=== PATIENT | female | born 1965 | race African-American/Black ===

== ENCOUNTER 2021-06-08 15:21 | Inpatient (IN) | payer MEDICAID ==
[~2021-06-08] VITALS: Ht 175.3 cm; Wt 60.9 kg
[2021-06-08] MEDS ORDERED: ACETAMINOPHEN 500 MG TABLET PO ONE (16:15)
[2021-06-08 16:33] LABS: COVID AG,FIA SOURCE NASOPHARYNGEAL
[2021-06-08 17:52] LABS: BASOPHILS % (AUTO) 0.1 % (0.0-2.0); EOSINOPHILS % (AUTO) 0.1 % (1.0-6.0); HEMATOCRIT 34.6 % (36-46); HEMOGLOBIN 11.1 g/dL (12.0-16.0); LYMPHOCYTES # (AUTO) 0.5 K/uL (1.0-4.8); LYMPHOCYTES % (AUTO) 2.7 % (22.0-44.0); MEAN CORPUSCULAR HEMOGLOBIN 27.7 pg (26.0-34.0); MEAN CORPUSCULAR HGB CONC 32.2 G/dL (31.0-37.0); MEAN CORPUSCULAR VOLUME 86 fL (80-100); MONOCYTES # (AUTO) 0.8 K/uL (0.1-1.0); MONOCYTES % (AUTO) 4.6 % (2.0-9.0); NEUTROPHILS # (AUTO) 15.9 K/uL (1.8-7.7); PLATELET COUNT (AUTO) 290 K/uL (150-450); RED BLOOD CELL COUNT(AUTO) 4.02 MIL/uL (4.00-5.20); RED CELL DISTRIBUTION WIDTH 14.8 % (11.5-14.5)
[2021-06-08 17:54] LABS: NEUTROPHILS % (AUTO) 92.5 % (40.0-70.0)
[2021-06-08 18:01] LABS: CALCIUM, TOTAL 8.8 mg/dL (8.8-10.5); CREATININE 1.86 mg/dL (0.60-1.30); POTASSIUM 3.3 mmol/L (3.5-5.1)
[2021-06-08 18:06] LABS: ALBUMIN 2.4 g/dL (3.4-5.0); BILIRUBIN,TOTAL 0.6 mg/dL (0.1-1.0); TOTAL PROTEIN, SERUM 6.8 g/dL (6.4-8.2)
[2021-06-08] MEDS ORDERED: AZITHROMYCIN 500 MG/NS 250 ML IV ONE (18:15)
[2021-06-08] MEDS ORDERED: HydrALAZINE HCL 20 MG/ML VIAL IVP ONE (18:15)
[2021-06-08] MEDS ORDERED: FUROSEMIDE 40 MG/4 ML VIAL IVP ONE (18:15)
[2021-06-08] MEDS ORDERED: CefTRIAXone 1 GM/DEXTROSE 50 ML IV ONE (18:15)
[2021-06-08] MEDS ORDERED: ONDANSETRON HCL 4 MG/2 ML VIAL IVP PRN ×2 (18:30→22:45)
[2021-06-08] MEDS ORDERED: ACETAMINOPHEN 325 MG TABLET PO PRN (18:30)
[2021-06-08 18:47] LABS: D-DIMER 3.3 mg/L FEU (0.00-0.50); PROTHROMBIN TIME 10.9 SEC (9.4-11.6)
[2021-06-08 19:00] LABS: PHOSPHORUS 2.7 mg/dL (2.5-4.9)
[2021-06-08 19:32] LABS: ERYTHROCYTE SEDIMENTATION RATE 78 MM/HR (0-20)
[2021-06-08 20:41] VITALS: BP 186/106
[2021-06-08] MEDS: CARVEDILOL 3.125 MG TABLET PO SCH (21:43)
[2021-06-08] MEDS ORDERED: IPRATROPIUM BROMIDE 0.5 MG/2.5 ML NEB SOLUTION NEB PRN (22:45)
[2021-06-08] MEDS ORDERED: MORPHINE SULFATE 2 MG/ML SYRINGE IVP PRN (22:45)
[2021-06-08] MEDS ORDERED: BISACODYL 10 MG RECTAL RECTAL SUPPOSITORY PR PRN (22:45)
[2021-06-08] MEDS ORDERED: ALBUTEROL SULFATE 2.5 MG/0.5 ML NEB SOLUTION NEB PRN (22:45)
[2021-06-08] MEDS ORDERED: MAGNESIUM HYDROXIDE SUSPENSION 30 ML UDCUP PO PRN (22:45)
[2021-06-08] MEDS ORDERED: POTASSIUM CHLORIDE 20 MEQ ER TABLET PO ONE (22:45)
[2021-06-08] MEDS: HEPARIN SODIUM,PORCINE 5,000 UNITS/ML VIAL SQ SCH (23:17)
[2021-06-08 23:28] VITALS: BP 169/90
[2021-06-08] MEDS: ACETAMINOPHEN 325 MG TABLET PO PRN (23:31)
[2021-06-09] MEDS: HYDROCODONE/ACETAMINOPHEN 5-325 MG TABLET PO PRN ×4 (03:34→22:14)
[2021-06-09 04:30] VITALS: BP 144/74
[2021-06-09 07:02] LABS: BASOPHILS % (AUTO) 0.2 % (0.0-2.0); CALCIUM, TOTAL 8.4 mg/dL (8.8-10.5); CREATININE 1.92 mg/dL (0.60-1.30); EOSINOPHILS % (AUTO) 0 % (1.0-6.0); HEMATOCRIT 34.8 % (36-46); HEMOGLOBIN 11.2 g/dL (12.0-16.0); LYMPHOCYTES # (AUTO) 0.7 K/uL (1.0-4.8); LYMPHOCYTES % (AUTO) 3.9 % (22.0-44.0); MEAN CORPUSCULAR HEMOGLOBIN 27.9 pg (26.0-34.0); MEAN CORPUSCULAR HGB CONC 32.1 G/dL (31.0-37.0); MEAN CORPUSCULAR VOLUME 87 fL (80-100); MONOCYTES # (AUTO) 0.9 K/uL (0.1-1.0); MONOCYTES % (AUTO) 5.1 % (2.0-9.0); NEUTROPHILS # (AUTO) 15.4 K/uL (1.8-7.7); PLATELET COUNT (AUTO) 308 K/uL (150-450); POTASSIUM 3.3 mmol/L (3.5-5.1); RED BLOOD CELL COUNT(AUTO) 4.02 MIL/uL (4.00-5.20); RED CELL DISTRIBUTION WIDTH 14.7 % (11.5-14.5)
[2021-06-09 07:04] LABS: NEUTROPHILS % (AUTO) 90.8 % (40.0-70.0)
[2021-06-09 07:51] VITALS: BP 156/98
[2021-06-09] MEDS: HEPARIN SODIUM,PORCINE 5,000 UNITS/ML VIAL SQ SCH ×3 (08:26→23:11)
[2021-06-09] MEDS: PANTOPRAZOLE SODIUM 40 MG DR TABLET PO SCH (08:26)
[2021-06-09] MEDS: FUROSEMIDE 20 MG/2 ML VIAL IVP SCH ×2 (08:26→20:48)
[2021-06-09] MEDS: CARVEDILOL 3.125 MG TABLET PO SCH ×2 (08:27→20:48)
[2021-06-09] MEDS: DOCUSATE SODIUM 100 MG CAPSULE PO SCH ×2 (08:28→20:48)
[2021-06-09] MEDS: ACETAMINOPHEN 325 MG TABLET PO PRN (08:42)
[2021-06-09] MEDS ORDERED: ALBUTEROL SULFATE HFA 90 MCG/PUFF 8 GM INHALER IH PRN (11:00)
[2021-06-09] MEDS ORDERED: IPRATROPIUM BROMIDE HFA 17 MCG/PUFF 12.9 GM INHALER IH PRN (11:00)
[2021-06-09] MEDS ORDERED: POTASSIUM CHLORIDE 20 MEQ ER TABLET PO ONE (11:00)
[2021-06-09 11:57] VITALS: BP 156/90
[2021-06-09] MEDS: THIAMINE 100 MG TABLET PO SCH (12:16)
[2021-06-09] MEDS: MULTIVITAMINS WITH MINERALS, THERAPEUTIC TABLET PO SCH (12:17)
[2021-06-09 15:56] VITALS: BP 161/96
[2021-06-09] MEDS: MethylPREDNISolone SOD SUCC 40 MG/ML VIAL IVP SCH ×2 (16:00→23:11)
[2021-06-09] MEDS: HydrALAZINE HCL 20 MG/ML VIAL IVP PRN (16:54)
[2021-06-09 19:52] VITALS: BP 134/93
[2021-06-09] MEDS ORDERED: SODIUM CHLORIDE 0.9% 500 ML IV ONE (20:44)
[2021-06-09] MEDS: AZITHROMYCIN 500 MG/NS 250 ML IV SCH (20:47)
[2021-06-09] MEDS: CefTRIAXone 1 GM/DEXTROSE 50 ML IV SCH (22:14)
[2021-06-10] VITALS (7 sets, daily range): BP systolic 143–197; BP diastolic 83–120
[2021-06-10] MEDS: HydrALAZINE HCL 20 MG/ML VIAL IVP PRN ×2 (04:05→13:23)
[2021-06-10 06:02] LABS: BASOPHILS % (AUTO) 0.2 % (0.0-2.0); EOSINOPHILS % (AUTO) 0 % (1.0-6.0); HEMATOCRIT 36.1 % (36-46); LYMPHOCYTES # (AUTO) 0.4 K/uL (1.0-4.8); LYMPHOCYTES % (AUTO) 3.7 % (22.0-44.0); MEAN CORPUSCULAR HEMOGLOBIN 28.1 pg (26.0-34.0); MEAN CORPUSCULAR HGB CONC 33.3 G/dL (31.0-37.0); MEAN CORPUSCULAR VOLUME 85 fL (80-100); MONOCYTES # (AUTO) 0.2 K/uL (0.1-1.0); MONOCYTES % (AUTO) 2.1 % (2.0-9.0); NEUTROPHILS # (AUTO) 8.9 K/uL (1.8-7.7); PLATELET COUNT (AUTO) 400 K/uL (150-450); RED BLOOD CELL COUNT(AUTO) 4.27 MIL/uL (4.00-5.20); RED CELL DISTRIBUTION WIDTH 14.8 % (11.5-14.5)
[2021-06-10 06:51] LABS: CALCIUM, TOTAL 9.3 mg/dL (8.8-10.5); CREATININE 1.56 mg/dL (0.60-1.30); MAGNESIUM 2.3 mg/dL (1.80-2.40); PHOSPHORUS 3.5 mg/dL (2.5-4.9); POTASSIUM 3.6 mmol/L (3.5-5.1)
[2021-06-10] MEDS: PANTOPRAZOLE SODIUM 40 MG DR TABLET PO SCH (07:48)
[2021-06-10] MEDS: DOCUSATE SODIUM 100 MG CAPSULE PO SCH ×2 (07:48→20:21)
[2021-06-10] MEDS: CARVEDILOL 3.125 MG TABLET PO SCH (07:49)
[2021-06-10] MEDS: THIAMINE 100 MG TABLET PO SCH (07:49)
[2021-06-10] MEDS: MULTIVITAMINS WITH MINERALS, THERAPEUTIC TABLET PO SCH (07:49)
[2021-06-10] MEDS: HYDROCODONE/ACETAMINOPHEN 5-325 MG TABLET PO PRN ×2 (07:50→13:33)
[2021-06-10] MEDS: HEPARIN SODIUM,PORCINE 5,000 UNITS/ML VIAL SQ SCH ×3 (07:50→23:42)
[2021-06-10] MEDS: FUROSEMIDE 20 MG/2 ML VIAL IVP SCH ×2 (07:51→20:21)
[2021-06-10] MEDS: MethylPREDNISolone SOD SUCC 40 MG/ML VIAL IVP SCH ×3 (07:53→23:42)
[2021-06-10] MEDS ORDERED: LISINOPRIL 5 MG TABLET PO SCH (12:00)
[2021-06-10] MEDS: CARVEDILOL 6.25 MG TABLET PO SCH (20:22)
[2021-06-10] MEDS: HYDROCODONE/CHLORPHEN POLIS 10-8 MG/5 ML ORAL.SYG PO PRN (20:22)
[2021-06-10] MEDS: ZOLPIDEM TARTRATE 5 MG TABLET PO PRN (20:22)
[2021-06-10] MEDS: AZITHROMYCIN 500 MG/NS 250 ML IV SCH (20:23)
[2021-06-10] MEDS: CefTRIAXone 1 GM/DEXTROSE 50 ML IV SCH (22:16)
[2021-06-11] VITALS (7 sets, daily range): BP systolic 162–189; BP diastolic 76–112
[2021-06-11] MEDS: HydrALAZINE HCL 20 MG/ML VIAL IVP PRN ×2 (04:50→14:34)
[2021-06-11 06:51] LABS: BASOPHILS % (AUTO) 0.3 % (0.0-2.0); EOSINOPHILS % (AUTO) 0 % (1.0-6.0); HEMATOCRIT 36.5 % (36-46); HEMOGLOBIN 11.6 g/dL (12.0-16.0); LYMPHOCYTES # (AUTO) 0.5 K/uL (1.0-4.8); LYMPHOCYTES % (AUTO) 4.4 % (22.0-44.0); MEAN CORPUSCULAR HEMOGLOBIN 27.5 pg (26.0-34.0); MEAN CORPUSCULAR HGB CONC 31.7 G/dL (31.0-37.0); MEAN CORPUSCULAR VOLUME 87 fL (80-100); MONOCYTES # (AUTO) 0.5 K/uL (0.1-1.0); MONOCYTES % (AUTO) 3.8 % (2.0-9.0); PLATELET COUNT (AUTO) 475 K/uL (150-450); RED BLOOD CELL COUNT(AUTO) 4.22 MIL/uL (4.00-5.20); RED CELL DISTRIBUTION WIDTH 15.1 % (11.5-14.5)
[2021-06-11 07:08] LABS: NEUTROPHILS % (AUTO) 91.5 % (40.0-70.0)
[2021-06-11 07:10] LABS: CREATININE 1.56 mg/dL (0.60-1.30); POTASSIUM 3.9 mmol/L (3.5-5.1)
[2021-06-11 07:11] LABS: CALCIUM, TOTAL 9.1 mg/dL (8.8-10.5)
[2021-06-11] MEDS: FUROSEMIDE 20 MG/2 ML VIAL IVP SCH ×2 (07:15→20:30)
[2021-06-11] MEDS: CARVEDILOL 6.25 MG TABLET PO SCH (07:16)
[2021-06-11] MEDS: LISINOPRIL 5 MG TABLET PO SCH ×2 (07:30→07:31)
[2021-06-11] MEDS: HYDROCODONE/ACETAMINOPHEN 5-325 MG TABLET PO PRN ×3 (08:26→20:30)
[2021-06-11] MEDS: MULTIVITAMINS WITH MINERALS, THERAPEUTIC TABLET PO SCH (08:26)
[2021-06-11] MEDS: PANTOPRAZOLE SODIUM 40 MG DR TABLET PO SCH (08:27)
[2021-06-11] MEDS: DOCUSATE SODIUM 100 MG CAPSULE PO SCH ×2 (08:27→20:30)
[2021-06-11] MEDS: THIAMINE 100 MG TABLET PO SCH (08:27)
[2021-06-11] MEDS: MethylPREDNISolone SOD SUCC 40 MG/ML VIAL IVP SCH ×3 (08:30→23:40)
[2021-06-11] MEDS: HEPARIN SODIUM,PORCINE 5,000 UNITS/ML VIAL SQ SCH ×3 (08:30→23:40)
[2021-06-11] MEDS ORDERED: CARVEDILOL 6.25 MG TABLET PO STA (11:26)
[2021-06-11] MEDS ORDERED: VANCOMYCIN HCL 1.25 GM in DEXTROSE 5%-WATER 250 ML IV ONE (14:00)
[2021-06-11] MEDS: CefTRIAXone SODIUM 2 GM in DEXTROSE 5%-WATER 50 ML IV SCH (14:35)
[2021-06-11] MEDS ORDERED: SODIUM CHLORIDE 0.9% 250 ML IV ONE (14:46)
[2021-06-11] MEDS: ZOLPIDEM TARTRATE 5 MG TABLET PO PRN (20:30)
[2021-06-11] MEDS: HYDROCODONE/CHLORPHEN POLIS 10-8 MG/5 ML ORAL.SYG PO PRN (20:30)
[2021-06-11] MEDS: CARVEDILOL 12.5 MG TABLET PO SCH (20:30)
[2021-06-11] MEDS: AZITHROMYCIN 500 MG/NS 250 ML IV SCH (20:31)
[2021-06-12] MEDS: HYDROCODONE/ACETAMINOPHEN 5-325 MG TABLET PO PRN ×4 (00:42→21:20)
[2021-06-12] MEDS: HydrALAZINE HCL 20 MG/ML VIAL IVP PRN ×3 (00:43→12:28)
[2021-06-12] MEDS ORDERED: DiphenhydrAMINE HCL 25 MG CAPSULE PO ONE ×2 (00:45→21:15)
[2021-06-12 04:04] VITALS: BP 164/104
[2021-06-12] MEDS: HYDROCODONE/CHLORPHEN POLIS 10-8 MG/5 ML ORAL.SYG PO PRN ×2 (05:58→21:20)
[2021-06-12 07:09] VITALS: BP 190/102
[2021-06-12] MEDS: MethylPREDNISolone SOD SUCC 40 MG/ML VIAL IVP SCH ×3 (07:43→23:39)
[2021-06-12] MEDS: HEPARIN SODIUM,PORCINE 5,000 UNITS/ML VIAL SQ SCH ×3 (07:43→23:39)
[2021-06-12] MEDS: DOCUSATE SODIUM 100 MG CAPSULE PO SCH ×2 (07:44→21:12)
[2021-06-12] MEDS: PANTOPRAZOLE SODIUM 40 MG DR TABLET PO SCH (07:44)
[2021-06-12] MEDS: CARVEDILOL 12.5 MG TABLET PO SCH (07:44)
[2021-06-12] MEDS: MULTIVITAMINS WITH MINERALS, THERAPEUTIC TABLET PO SCH (07:44)
[2021-06-12] MEDS: FUROSEMIDE 20 MG/2 ML VIAL IVP SCH (07:44)
[2021-06-12] MEDS: THIAMINE 100 MG TABLET PO SCH (07:46)
[2021-06-12] MEDS ORDERED: VANCOMYCIN HCL 1 GM/D5% WATER 200 ML IV SCH (08:00)
[2021-06-12] MEDS ORDERED: LISINOPRIL 20 MG TABLET PO SCH (09:00)
[2021-06-12 11:34] LABS: MAGNESIUM 2.3 mg/dL (1.80-2.40)
[2021-06-12 11:43] VITALS: BP 166/100
[2021-06-12] MEDS: CefTRIAXone SODIUM 2 GM in DEXTROSE 5%-WATER 50 ML IV SCH (13:40)
[2021-06-12 16:12] VITALS: BP 181/106
[2021-06-12] MEDS ORDERED: CARVEDILOL 12.5 MG TABLET PO ONE (16:15)
[2021-06-12] MEDS ORDERED: AmLODIPine BESYLATE 5 MG TABLET PO SCH (16:15)
[2021-06-12 20:23] VITALS: BP 171/102
[2021-06-12] MEDS ORDERED: FUROSEMIDE 20 MG TABLET PO SCH (21:00)
[2021-06-12] MEDS ORDERED: CARVEDILOL 12.5 MG TABLET PO SCH (21:00)
[2021-06-12] MEDS: AZITHROMYCIN 500 MG/NS 250 ML IV SCH (21:11)
[2021-06-13 00:06] VITALS: BP 161/86
[2021-06-13] MEDS: HydrALAZINE HCL 20 MG/ML VIAL IVP PRN (01:06)
[2021-06-13] MEDS: ZOLPIDEM TARTRATE 5 MG TABLET PO PRN (01:10)
[2021-06-13 05:18] VITALS: BP 168/102
[2021-06-13] MEDS ORDERED: HydrALAZINE HCL 20 MG/ML VIAL IVP ONE (05:30)
[2021-06-13 06:26] LABS: BASOPHILS % (AUTO) 0.3 % (0.0-2.0); EOSINOPHILS % (AUTO) 0 % (1.0-6.0); HEMATOCRIT 34.8 % (36-46); HEMOGLOBIN 11.2 g/dL (12.0-16.0); LYMPHOCYTES # (AUTO) 0.6 K/uL (1.0-4.8); LYMPHOCYTES % (AUTO) 5.1 % (22.0-44.0); MEAN CORPUSCULAR HEMOGLOBIN 27.5 pg (26.0-34.0); MEAN CORPUSCULAR HGB CONC 32.2 G/dL (31.0-37.0); MEAN CORPUSCULAR VOLUME 86 fL (80-100); MONOCYTES # (AUTO) 0.6 K/uL (0.1-1.0); MONOCYTES % (AUTO) 4.8 % (2.0-9.0); NEUTROPHILS # (AUTO) 10.9 K/uL (1.8-7.7); PLATELET COUNT (AUTO) 496 K/uL (150-450); RED BLOOD CELL COUNT(AUTO) 4.06 MIL/uL (4.00-5.20); RED CELL DISTRIBUTION WIDTH 14.9 % (11.5-14.5)
[2021-06-13 06:43] LABS: ALBUMIN 2.7 g/dL (3.4-5.0); BILIRUBIN,TOTAL 0.1 mg/dL (0.1-1.0); CALCIUM, TOTAL 9.3 mg/dL (8.8-10.5); CREATININE 1.39 mg/dL (0.60-1.30); POTASSIUM 4.3 mmol/L (3.5-5.1); TOTAL PROTEIN, SERUM 6.9 g/dL (6.4-8.2)
[2021-06-13 06:54] LABS: NEUTROPHILS % (AUTO) 89.8 % (40.0-70.0)
== END 2021-06-13 07:35 | disposition left against medical advice (07) | DRG 720 ==
LOC: EMS 15:23 → 5N 18:31 → 5S 06-11 14:20
PROVIDERS: ADMIT Internal Medicine; ATTEND Internal Medicine
DX: A41.2 Sepsis due to unspecified staphylococcus (principal); J96.91 Respiratory failure, unspecified with hypoxia; I50.43 Acute on chronic combined systolic (congestive) and diastolic (congestive) heart failure; E43 Unspecified severe protein-calorie malnutrition; I47.2 Ventricular tachycardia; J15.20 Pneumonia due to staphylococcus, unspecified; N17.9 Acute kidney failure, unspecified; D63.8 Anemia in other chronic diseases classified elsewhere; I13.0 Hypertensive heart and chronic kidney disease with heart failure and stage 1 through stage 4 chronic kidney disease, or unspecified chronic kidney disease; F17.210 Nicotine dependence, cigarettes, uncomplicated; F12.90 Cannabis use, unspecified, uncomplicated; J43.9 Emphysema, unspecified; N18.30 Chronic kidney disease, stage 3 unspecified; Z20.822 Contact with and (suspected) exposure to COVID-19; Z53.29 Procedure and treatment not carried out because of patient's decision for other reasons; Z82.49 Family history of ischemic heart disease and other diseases of the circulatory system; Z68.1 Body mass index [BMI] 19.9 or less, adult
CPT/HCPCS: 71045; 80048; 80053; 82728; 83615; 83735; 83880; 84100; 84145; 84484; 85025; 85379; 85610; 85651; 85730; 87040; 87077; 87186; 87205; 93005; 93306; 99285; J0360; J0456; J0696; J1644; J1940; J2920; J3370; J7040; J7050; J7060; 36415-L1; 36415-TC; U0003

== ENCOUNTER 2022-01-07 07:02 | Emergency (ER) | payer MEDICAID ==
[~2022-01-07] VITALS: Ht 175.3 cm; Wt 66.0 kg
[~2022-01-07 07:02] MED LIST: AMLO2.5T96 PO; CARV12 PO; LISI-894 PO
[2022-01-07] MEDS ORDERED: CARVEDILOL 6.25 MG TABLET PO ONE (08:00)
[2022-01-07] MEDS ORDERED: AmLODIPine BESYLATE 5 MG TABLET PO ONE (08:00)
[2022-01-07] MEDS ORDERED: LISINOPRIL 10 MG TABLET PO ONE (08:00)
[2022-01-07] MEDS ORDERED: LISI-894 PO (10:04)
[2022-01-07] MEDS ORDERED: AMLO2.5T96 PO (10:04)
[2022-01-07] MEDS ORDERED: CARV12 PO (10:04)
[2022-01-07 10:18] VITALS: BP 142/60
== END 2022-01-07 10:40 | disposition home or self-care (01) ==
LOC: EMS 07:02
DX: I10 Essential (primary) hypertension (principal); F10.20 Alcohol dependence, uncomplicated; F12.90 Cannabis use, unspecified, uncomplicated; F17.210 Nicotine dependence, cigarettes, uncomplicated
CPT/HCPCS: 99284; Z7502; Z7610

== ENCOUNTER 2022-03-20 18:51 | Emergency (ER) | payer MEDICAID ==
[~2022-03-20] VITALS: Ht 175.3 cm; Wt 63.0 kg
[2022-03-20] MEDS ORDERED: LISINOPRIL 10 MG TABLET PO ONE (20:15)
[2022-03-20] MEDS ORDERED: CARVEDILOL 6.25 MG TABLET PO ONE (20:15)
[2022-03-20] MEDS ORDERED: AmLODIPine BESYLATE 5 MG TABLET PO ONE (20:15)
[2022-03-20] MEDS ORDERED: CARV12.530 PO (21:30)
[2022-03-20] MEDS ORDERED: LISI-894 PO (21:30)
[2022-03-20] MEDS ORDERED: AMLO2.5T96 PO (21:32)
[2022-03-20 22:21] VITALS: BP 170/100
== END 2022-03-20 22:44 | disposition home or self-care (01) ==
LOC: EMS 18:52
DX: I10 Essential (primary) hypertension (principal); F17.210 Nicotine dependence, cigarettes, uncomplicated; F12.90 Cannabis use, unspecified, uncomplicated; Z59.00 Homelessness unspecified
CPT/HCPCS: 99284; Z7502; Z7610

== ENCOUNTER 2022-05-20 07:41 | Inpatient (IN) | payer MEDICAID ==
[2022-05-20] VITALS (8 sets, daily range): BP systolic 118–196; BP diastolic 73–138
[~2022-05-20] VITALS: Ht 167.6 cm; Wt 60.8 kg
[~2022-05-20 07:41] MED LIST changes: +CARV12.530 PO
[2022-05-20] MEDS ORDERED: HydrALAZINE HCL 20 MG/ML VIAL IVP ONE ×4 (08:00→14:45)
[2022-05-20 08:11] LABS: BASOPHILS % (AUTO) 0.5 % (0.0-2.0); EOSINOPHILS % (AUTO) 5.6 % (1.0-6.0); HEMATOCRIT 37.6 % (36-46); HEMOGLOBIN 12.1 g/dL (12.0-16.0); LYMPHOCYTES # (AUTO) 0.8 K/uL (1.0-4.8); LYMPHOCYTES % (AUTO) 16.7 % (22.0-44.0); MEAN CORPUSCULAR HEMOGLOBIN 27.9 pg (26.0-34.0); MEAN CORPUSCULAR HGB CONC 32.3 G/dL (31.0-37.0); MEAN CORPUSCULAR VOLUME 86 fL (80-100); MONOCYTES # (AUTO) 0.5 K/uL (0.1-1.0); MONOCYTES % (AUTO) 10.8 % (2.0-9.0); NEUTROPHILS % (AUTO) 66.4 % (40.0-70.0); PLATELET COUNT (AUTO) 264 K/uL (150-450); RED BLOOD CELL COUNT(AUTO) 4.36 MIL/uL (4.00-5.20); RED CELL DISTRIBUTION WIDTH 16.1 % (11.5-14.5)
[2022-05-20 08:16] LABS: CREATININE 1.81 mg/dL (0.60-1.30); POTASSIUM 3.5 mmol/L (3.5-5.1)
[2022-05-20 08:22] LABS: BILIRUBIN,TOTAL 0.4 mg/dL (0.1-1.0); TOTAL PROTEIN, SERUM 6.4 g/dL (6.4-8.2)
[2022-05-20 08:44] LABS: COVID AG,FIA SOURCE NASAL SWAB
[2022-05-20 09:04] LABS: B-TYPE NATRIURETIC PEPTIDE 1320 pg/mL (0-100)
[2022-05-20 09:11] LABS: INFLUENZA TYPE A NEGATIVE FOR TYPE A (NEGATIVE); INFLUENZA TYPE B NEGATIVE FOR TYPE B (NEGATIVE)
[2022-05-20 09:43] LABS: CREATINE KINASE, TOTAL ONLY 224 U/L (26-192)
[2022-05-20] MEDS ORDERED: LORazepam 2 MG/ML VIAL IVP ONE (10:30)
[2022-05-20] MEDS ORDERED: NITROGLYCERIN 2% (1 GM=INCH) PACKET TP ONE (11:45)
[2022-05-20] MEDS ORDERED: ACETAMINOPHEN 325 MG TABLET PO PRN ×2 (14:45→22:15)
[2022-05-20] MEDS ORDERED: INFLUENZA VIRUS VACCINE QVS 2022-23 (6MO+)/PF 60 MCG/0.5 ML SYRINGE IM. ONE (18:00)
[2022-05-20] MEDS: CloNIDine HCL 0.1 MG TABLET PO PRN (20:00)
[2022-05-20] MEDS ORDERED: LISINOPRIL 10 MG TABLET PO ONE (22:00)
[2022-05-20] MEDS ORDERED: CARVEDILOL 12.5 MG TABLET PO ONE (22:00)
[2022-05-20] MEDS: CARVEDILOL 12.5 MG TABLET PO SCH (22:00)
[2022-05-20] MEDS ORDERED: AmLODIPine BESYLATE 10 MG TABLET PO ONE (22:00)
[2022-05-20] MEDS ORDERED: ZOLPIDEM TARTRATE 5 MG TABLET PO PRN (22:15)
[2022-05-20] MEDS ORDERED: ONDANSETRON HCL 4 MG/2 ML VIAL IVP PRN (22:15)
[2022-05-20] MEDS ORDERED: MORPHINE SULFATE 2 MG/ML SYRINGE IVP PRN (22:15)
[2022-05-20] MEDS ORDERED: BISACODYL 10 MG RECTAL RECTAL SUPPOSITORY PR PRN (22:15)
[2022-05-20] MEDS ORDERED: ALBUTEROL SULFATE 2.5 MG/0.5 ML NEB SOLUTION NEB PRN (22:15)
[2022-05-20] MEDS ORDERED: IPRATROPIUM BROMIDE 0.5 MG/2.5 ML NEB SOLUTION NEB PRN (22:15)
[2022-05-20] MEDS ORDERED: MAGNESIUM HYDROXIDE SUSPENSION 30 ML UDCUP PO PRN (22:15)
[2022-05-20] MEDS ORDERED: HydrALAZINE HCL 20 MG/ML VIAL IVP PRN (22:15)
[2022-05-20] MEDS: HEPARIN SODIUM,PORCINE 5,000 UNITS/ML VIAL SQ SCH (23:57)
[2022-05-21 01:23] LABS: APPEARANCE,URINE CLEAR (CLEAR); BILIRUBIN,URINE NEGATIVE (NEGATIVE); GLUCOSE, URINE (UA) 70-100 mg/dL (NEGATIVE); KETONES,URINE NEGATIVE (NEGATIVE); LEUKOCYTE ESTERASE ,URINE NEGATIVE (NEGATIVE); NITRATE,URINE NEGATIVE (NEGATIVE); OCCULT BLOOD,URINE NEGATIVE (NEGATIVE); PROTEIN,URINE 30-70 mg/dL (NEGATIVE); SPECIFIC GRAVITIY, URINE 1.014 (1.003-1.030); UROBILINOGEN,URINE <=1.0 mg/dL (<=1.0)
[2022-05-21 01:29] LABS: AMPHET/METH SCREEN,URINE NEGATIVE (NEGATIVE); BARBITURATE SCREEN, URINE NEGATIVE (NEGATIVE); BENZODIAZEPINES SCREEN,URINE NEGATIVE (NEGATIVE); CANNABINOID SCREEN,URINE POSITIVE (NEGATIVE); COCAINE SCREEN,URINE POSITIVE (NEGATIVE); METHADONE SCREEN, URINE NEGATIVE (NEGATIVE); OPIATE SCREEN,URINE NEGATIVE (NEGATIVE)
[2022-05-21 01:30] LABS: PHENCYCLIDINE SCREEN,URINE NEGATIVE (NEGATIVE)
[2022-05-21 01:55] LABS: BACTERIA,URINE None Seen /HPF (None Seen); RBC,URINE None Seen /HPF (0-2); SQUAMOUS EPITHELIAL CELL,UR None Seen /LPF (None Seen); WBC,URINE None Seen /HPF (0-5)
[2022-05-21 03:56] VITALS: BP 171/98
[2022-05-21] MEDS: CloNIDine HCL 0.1 MG TABLET PO PRN ×2 (04:05→16:13)
[2022-05-21 07:36] VITALS: BP 153/85
[2022-05-21] MEDS: LISINOPRIL 20 MG TABLET PO SCH (08:39)
[2022-05-21] MEDS: CARVEDILOL 12.5 MG TABLET PO SCH ×3 (08:39→20:53)
[2022-05-21] MEDS: PANTOPRAZOLE SODIUM 40 MG DR TABLET PO SCH (08:39)
[2022-05-21] MEDS: HEPARIN SODIUM,PORCINE 5,000 UNITS/ML VIAL SQ SCH ×2 (08:40→16:14)
[2022-05-21] MEDS: HYDROCODONE/ACETAMINOPHEN 5-325 MG TABLET PO PRN ×2 (08:48→20:57)
[2022-05-21] MEDS ORDERED: AmLODIPine BESYLATE 10 MG TABLET PO SCH (09:00)
[2022-05-21 10:51] VITALS: BP 143/66
[2022-05-21 15:01] VITALS: BP 163/93
[2022-05-21] MEDS ORDERED: NIFEdipine 60 MG ER TABLET PO ONE (18:00)
[2022-05-21 18:13] LABS: BASOPHILS % (AUTO) 0.8 % (0.0-2.0); EOSINOPHILS % (AUTO) 4.5 % (1.0-6.0); HEMATOCRIT 40.4 % (36-46); HEMOGLOBIN 12.8 g/dL (12.0-16.0); LYMPHOCYTES % (AUTO) 26.4 % (22.0-44.0); MEAN CORPUSCULAR HEMOGLOBIN 27.8 pg (26.0-34.0); MEAN CORPUSCULAR HGB CONC 31.7 G/dL (31.0-37.0); MEAN CORPUSCULAR VOLUME 88 fL (80-100); MONOCYTES # (AUTO) 0.4 K/uL (0.1-1.0); NEUTROPHILS # (AUTO) 2.2 K/uL (1.8-7.7); NEUTROPHILS % (AUTO) 57.3 % (40.0-70.0); PLATELET COUNT (AUTO) 271 K/uL (150-450); RED BLOOD CELL COUNT(AUTO) 4.61 MIL/uL (4.00-5.20); RED CELL DISTRIBUTION WIDTH 16.3 % (11.5-14.5)
[2022-05-21 18:21] LABS: CREATININE 1.8 mg/dL (0.60-1.30); POTASSIUM 4.3 mmol/L (3.5-5.1)
[2022-05-21 18:26] LABS: HEMOGLOBIN A1C 5.7 % (3.8-5.6)
[2022-05-21 18:35] LABS: BILIRUBIN,TOTAL 0.3 mg/dL (0.1-1.0); THYROID STIMULATING HORMONE 1.76 uIU/mL (0.36-3.74); TOTAL PROTEIN, SERUM 6.4 g/dL (6.4-8.2)
[2022-05-21 20:06] VITALS: BP 152/87
[2022-05-22 00:17] VITALS: BP 127/71
[2022-05-22 04:45] VITALS: BP_SYST 123; BP_SYST 152; BP_DIAS 66; BP_DIAS 97
[2022-05-22 06:54] LABS: CHOL/HDL RATIO 3.2 (3.9-5.7)
[2022-05-22 07:21] VITALS: BP 148/97
[2022-05-22] MEDS: LISINOPRIL 20 MG TABLET PO SCH (08:46)
[2022-05-22] MEDS: HEPARIN SODIUM,PORCINE 5,000 UNITS/ML VIAL SQ SCH ×3 (08:46→16:00)
[2022-05-22] MEDS: PANTOPRAZOLE SODIUM 40 MG DR TABLET PO SCH (08:46)
[2022-05-22] MEDS: CARVEDILOL 12.5 MG TABLET PO SCH (08:46)
[2022-05-22] MEDS: HYDROCODONE/ACETAMINOPHEN 5-325 MG TABLET PO PRN (08:47)
[2022-05-22] MEDS ORDERED: NIFEdipine 60 MG ER TABLET PO SCH (09:00)
[2022-05-22 12:31] VITALS: BP 144/91
[2022-05-22] MEDS ORDERED: NIFE-129 PO (14:54)
[2022-05-22 15:33] VITALS: BP 157/87
== END 2022-05-22 17:10 | disposition home or self-care (01) | DRG 199 ==
LOC: EMS 07:55 → 5S 10:54
PROVIDERS: ADMIT Hospitalist; ATTEND Hospitalist
DX: I16.0 Hypertensive urgency (principal); E44.0 Moderate protein-calorie malnutrition; N18.9 Chronic kidney disease, unspecified; F17.210 Nicotine dependence, cigarettes, uncomplicated; I12.9 Hypertensive chronic kidney disease with stage 1 through stage 4 chronic kidney disease, or unspecified chronic kidney disease; F19.10 Other psychoactive substance abuse, uncomplicated; Z20.822 Contact with and (suspected) exposure to COVID-19; Z59.00 Homelessness unspecified; Z68.21 Body mass index [BMI] 21.0-21.9, adult; Z82.49 Family history of ischemic heart disease and other diseases of the circulatory system; Z86.73 Personal history of transient ischemic attack (TIA), and cerebral infarction without residual deficits; Z71.6 Tobacco abuse counseling; R79.89 Other specified abnormal findings of blood chemistry
CPT/HCPCS: 70450; 71045; 80053; 80061; 81001; 81003; 82550; 83036; 83880; 84443; 84484; 85025; 87804; 93005; 93306; 99285; J0360; J1644; J2060; 36415-L1; 36415-TC